=== PATIENT | male | born 1985 | race Caucasian/White ===

== ENCOUNTER 2018-12-04 10:58 | Day surgery (SDC) | payer OTHER, MEDICAID, SELFPAY ==
[2018-11-20 08:19] VITALS: BMI 22.9
[2018-12-04 13:00] VITALS: BP 127/87; PULSE 92; RESP 16; TEMP 36.4; O2SAT 100; BMI 22.9
[2018-12-04] MEDS: LACTATED RINGERS 1,000 ML 42 ML IV (13:04)
[2018-12-04] MEDS: METOCLOPRAMIDE 10 MG/2 ML INJ IV (13:24)
--- NOTE | 2018-12-04 14:16 | PM.PREOP ---
Pre-operative Note Interval Note History & Physical reviewed/Exam performed by Physician: Yes Changes to H&P: No
[2018-12-04] MEDS: MIDAZOLAM 2 MG/2 ML VIAL IV (14:53)
--- NOTE | 2018-12-04 15:07 | SUR.PREOP ---
Block start time [1454] . Monitoring initiated and maintained throughout procedure. Oxygen and medications given per anesthesiologist instructions. Patient remained stable throughout procedure, no adverse reactions noted. Block end time [1503].
[2018-12-04] MEDS: CEFAZOLIN 2 GM/100 ML FROZ.PIGGY IV (15:10)
--- NOTE | 2018-12-04 15:35 | SUR.OPER ---
Lateral on padded OR bed with copeland bag positioner, head on pillow, gel axillary roll in place, bottom leg bent with gel pad under knee to foot, upper leg straight and supported with pillows. Operative arm secured in shoulder positioning suspension device. non-operative arm secured on padded arm board. Safety belt at hip, tape over blanket securing lower legs.
[2018-12-04] MEDS: BUPIVACAINE 0.5% W/ EPI (PF) VIAL 30 ML INJ (15:44)
[2018-12-04] MEDS: SODIUM CHLORIDE IRRIG SOLUTION 3,000 ML, EPINEPHrine 1 MG IRR (15:45)
--- NOTE | 2018-12-04 16:04 | P.PCN_ITS ---
Procedures Date/Time Date of procedure: 12/04/18 Time of procedure: 15:04 Nerve Block Time out performed: Yes Local anesthetic used: other (15mL 0.5opivacaine, 5mL 2* idocaine) Location of anesthetic used: interscalene Amount of anesthesia used (mL): 20 Nerve blocks: brachial plexus (interscalene) Procedure successful: Yes Patient tolerated procedure: well Complications: none Additional comments: LEFT Brachial plexus nerve block for post operative pain management. Risks and benefits discussed, including bleeding, infection, intravascular injection, nerve damage, block failure. Standard ASA monitors, NC O2. Pt supine. Chloroprep site preparation, sterile technique. Brachial plexus identified with US guidance, traced from supraclavicular to interscalene. 1mL 2% lidocaine skin wheal. 22g x 50mm Pajunk advanced with in-plane US guidance to brachial plexus. Negative aspiration. LA injected with intermittent negative aspiration. Good LA spread noted on US. No pain, no paraesthesia. Pt tolerated procedure well. Vital signs stable.
[2018-12-04 16:22] VITALS: BP 121/72; PULSE 81; RESP 12; TEMP 36.1; O2SAT 97
[2018-12-04 16:27] VITALS: BP 123/66; PULSE 84; RESP 12; O2SAT 97
--- NOTE | 2018-12-04 16:31 | P.OP_ITS ---
Operative Date/Time/Diagnoses Date of procedure: 12/04/18 Time of procedure: 16:15 Pre-op diagnosis: Left shoulder acromioclavicular joint pain and arthritis Post-op diagnosis: same Procedure & Clinicians Procedure: Left shoulder arthroscopic distal clavicle excision Same procedure as scheduled: Yes Indications: The patient is a 33-year-old gentleman who suffered an injury at work causing pain in his left acromioclavicular joint. Injections have given temporary relief. Unfortunately non operative therapy has not given lasting relief. He has spent an extended period of time fighting the [employer] who has not accepted this injury as being connected to his work. He has elected to proceed with arthroscopic distal clavicle excision on his own insurance. Risks discussed included but were not limited to: Failure to improve, infection, nerve damage, deep venous thrombosis, pulmonary embolism, stroke, myocardial infarction, permanent paralysis and . Surgeon: Ki Yancey Click Yes if Unassisted: Yes Anesthesia Type: General, Peripheral nerve block and Local Operative Notes Findings: 1. Normal glenohumeral cartilage 2. Normal glenoid labrum 3. Normal glenohumeral ligaments 4. Normal subscapularis 5. Normal biceps tendon 6. Normal supraspinatus 7. Normal infraspinatus 8. Normal axillary pouch 9. Normal rotator cuff from the bursal surface 10. Slight curve to the acromion with no impingement lesion, multiple scar bands in the bursal tissue 11. Arthritic change at the acromioclavicular joint 12. Exam under anesthesia notable for full range of motion and no evidence for pathologic laxity. Closure Type: primary Specimen(s): none sent Estimated Blood Loss (mL): 10 Blood products transfused: none Procedure in detail: The patient was seen in the preoperative area where he identified his left shoulder as the operative site and this was marked with my initials. He received preoperative antibiotics and underwent the induction of an interscalene block. He was then transported to the operating room and placed on the operating room table in a supine position where he underwent induction with general anesthetic. Subsequently was positioned in the right lateral decubitus position with an axillary roll and padding for all pressure points. He was stabilized in this position using the copeland bag. He was lightly taped to the table as well. The left arm was prepared for the fingertips the base neck with ChloraPrep in the usual fashion and drape through sterile drapes. The arm was placed in 10 lb of balanced skin suspension. Subcutaneous landmarks were outlined on the skin with a marking pen and portal sites were selected. Posterior portal was created and the arthroscope inserted into the glenohumeral joint. Diagnostic arthroscopy ensued with result given above. There was no n eed for surgical intervention in the glenohumeral joint so the arthroscope was removed and repositioned in the subacromial bursa through the posterior portal. Lateral portal was created for instrumentation the shaver was inserted and initially used to debride scar bands found in the bursa. The distal clavicle was identified by pressing down on the clavicle from exterior. The distal 8-10 mm of clavicle was cleaned of underlying soft tissue and the bur used to remove the distal 8-10 mm of clavicle. Full resection was confirmed visually. The articular disc was also removed using a rongeur. At the conclusion of this all arthroscopic equipment was removed. The wounds were closed with 4 0 Monocryl and Steri-Strips. An additional 20 mL of 0.5% Marcaine was injected in the subacromial bursa and the subcutaneous tissues for postoperative pain control. Dressings of sterile 4x4s, an ABD and Tegaderm were applied. The arm was placed in a sling and the patient was transported to the recovery room in good condition having tolerated the procedure well. Complications: none Condition: stable Disposition: PACU Plan for aftercare: The patient will be allowed uses arm as tolerated. The sling is only for comfort. He will be discharged later today. He will follow up in 2 weeks in my office to be started on physical therapy and a standard subacromial decompression protocol.
[2018-12-04 16:32] VITALS: BP 133/94; PULSE 91; RESP 15; TEMP 36.4; O2SAT 99
[2018-12-04 16:36] VITALS: BP 141/76; PULSE 96; RESP 21; O2SAT 99
[2018-12-04 16:43] VITALS: BP 113/75; PULSE 91; RESP 14; TEMP 36.6; O2SAT 99
== END 2018-12-04 17:05 | disposition home or self-care (01) ==
PROVIDERS: Visit Provider Orthopaedic Surgery
PROC: (CPT 29805; principal; 2018-12-04 15:30)
DX: S46.911A Strain of unspecified muscle, fascia and tendon at shoulder and upper arm level, right arm, initial encounter (principal); G89.18 Other acute postprocedural pain; X50.3XXA Overexertion from repetitive movements, initial encounter
CPT/HCPCS: 29824; 64415; J0171; J0690; J1100; J2250; J2704; J2765; J3010